=== PATIENT | female | born 1985 | race Caucasian/White ===

== ENCOUNTER 2016-04-05 12:51 | Inpatient (IN) | payer BC ==
[~2016-04-05] VITALS: Ht 162.6 cm; Wt 61.0 kg
[2016-04-05] MEDS ORDERED: LACTATED RINGER'S 1000ML 1,000 ML IV PRN (13:08)
[2016-04-05 13:35] LABS: MEAN CELL VOLUME 92.5 fL (80-100); MEAN CORPUSCULAR HEMOGLOBIN 32.9 pg (25-34); MEAN CORPUSCULAR HGB CONC 35.6 g/dl (32-36); MEAN PLATELET VOLUME 10.9 fL (7.4-10.4); PLATELET COUNT 180 K/uL (130-400); RED BLOOD COUNT 4.65 M/uL (4.2-5.4); WHITE BLOOD COUNT 14.02 K/uL (4.8-10.8)
[2016-04-05] MEDS: LACTATED RINGER'S 1000ML 1,000 ML IV SCH (13:35)
[2016-04-05] MEDS ORDERED: EpHEDrine SULFATE INJ 50 MG/ML AMP ONE (15:06)
[2016-04-05] MEDS ORDERED: FENTANYL 2MCG/ML ROPIV 1.25MG/ML 100ML BAG EPI ONE (15:06)
[2016-04-05] MEDS ORDERED: FENTANYL CITRATE INJ 50 MCG/1 ML 2 ML VIAL ONE (15:06)
[2016-04-05] MEDS ORDERED: BUPIVACAINE 0.25% 30 ML VIAL ONE (15:06)
[2016-04-05] MEDS ORDERED: NALOXONE HCL INJ 1 MG in SODIUM CHLORIDE 0.9% 1000ML 1,000 ML IV PRN (15:43)
[2016-04-05] MEDS ORDERED: LACTATED RINGER'S 1000ML 500 ML IV PRN (15:43)
[2016-04-05] MEDS ORDERED: NALBUPHINE HCL INJ 10 MG/ML AMP IV PRN (15:45)
[2016-04-05] MEDS ORDERED: DiphenhydrAMINE HCL 50 MG/ML VIAL IV PRN (15:45)
[2016-04-05] MEDS ORDERED: ONDANSETRON INJ 2 MG/ML 2 ML VIAL IV PRN (15:45)
[2016-04-05] MEDS ORDERED: NALOXONE HCL INJ 0.4 MG/1 ML VIAL/CARP IV PRN (15:45)
[2016-04-05] MEDS ORDERED: EpHEDrine SULFATE INJ 50 MG/ML AMP IV PRN (15:45)
[2016-04-05] MEDS ORDERED: FENTANYL 2MCG/ML ROPIV 1.25MG/ML 100ML BAG EPI PRN (15:45)
[2016-04-05 16:20] VITALS: Ht 162.6 cm; Wt 61.0 kg
[2016-04-05] MEDS ORDERED: PRENTAB26 PO (16:31)
[2016-04-05] MEDS ORDERED: OXYTOCIN 30 UNITS/500ML NSS IV ONE (23:39)
[2016-04-06] VITALS (7 sets, daily range): BP systolic 107–125; BP diastolic 55–80; PULSE 69–86; TEMP 36.5–36.9; O2SAT 96–98
[2016-04-06] MEDS ORDERED: LANOLIN OINT EXT PRN ×2 (02:00)
[2016-04-06] MEDS ORDERED: SUPERCREAM 0.870 % 15GM JAR EXT PRN (02:00)
[2016-04-06] MEDS ORDERED: BENZOCAINE 20% AER SPR 82.5 GM CAN EXT PRN (02:00)
[2016-04-06] MEDS ORDERED: ACETAMINOPHEN/CODEINE 300/30MG TAB PO PRN ×2 (02:00)
[2016-04-06] MEDS ORDERED: HYDROCORTISONE ACETATE 25 MG SUPP PR PRN (02:00)
[2016-04-06] MEDS ORDERED: OXYTOCIN 30 UNITS/500ML NSS IV PRN (02:00)
[2016-04-06] MEDS ORDERED: IBUPROFEN 600 MG TAB ONE (02:05)
--- NOTE | 2016-04-06 02:11 | DELIVERY SUMMARY ---
DATE OF OPERATION: 04/05/2016 DELIVERING SURGEON: Dr. Skinner. PRE-DELIVERY DIAGNOSES: 1. A 30-year-old G2, P 0-0-1-0, at 39 weeks 2 days. 2. Spontaneous labor. 3. Rh-negative status. POST-DELIVERY DIAGNOSES: Same. CONDITION: Stable and good. FINDINGS: Viable male with Apgars 9 and 10, weight pending. PROCEDURE: Spontaneous vaginal delivery with repair of first-degree perineal laceration. ESTIMATED BLOOD LOSS: 300 mL DESCRIPTION OF PROCEDURE: The patient progressed to complete with epidural anesthesia. She then spontaneously vaginally delivered a viable male over an intact perineum. The head delivered in the left occiput anterior position. This was followed by anterior, then posterior shoulder, then body. No nuchal cord was noted. Baby was delivered and placed on mother's abdomen. The cord was doubly clamped and cut. A segment was retained for cord gases. Cord blood was obtained. The placenta then delivered spontaneously intact with a 3-vessel cord. Pitocin was given. The uterus and vagina were swept of all clots and debris. The uterus became firm. Cervix, vagina and perineum were inspected. A first-degree perineal laceration was noted and this was repaired in standard fashion with 3-0 Vicryl. Mother and baby tolerated delivery well. Excellent hemostasis was achieved. At the conclusion of delivery, sponge, instrument and needle counts were correct x2. I attest to the content of the Intraoperative Record and any orders documented therein. Any exceptio ns are noted below.
--- NOTE | 2016-04-06 07:56 | Progress Note ---
Subjective Apr 06, 2016. Subjective conversation w/ patient, physical exam Ambulation: ambulating normally Voiding: no voiding problems Passing Gas: Yes Diet Tolerance: Regular Diet Lochia: Small Feeding Type: Breast Feeding Pain: No pain reported this morning Review of Systems Constitutional: No chills, No fever Respiratory: No cough, No shortness of breath Cardiac: No chest pain Breast: No breast pain Abdomen: No nausea, No pain, No vomiting Female : No dysuria Objective Vital Signs Date Time Temp Pulse Resp B/P Pulse Ox O2 Delivery O2 Flow Rate FiO2 04/06/16 03:49 36.9 82 18 111/55 Room Air 04/06/16 02:24 36.7 82 18 120/72 Room Air 04/06/16 02:24 Room Air Physical Exam General Appearance: WELL-APPEARING, WD/WN, NO APPARENT DISTRESS Respiratory/Chest: lungs clear, normal breath sounds Cardiovascular: regular rate, rhythm, no gallop, no murmur Fundus: Firm Extremities: no calf tenderness Laboratory Results Last 24 Hours Test 04/05/16 13:25 White Blood Count 14.02 K/uL Red Blood Count 4.65 M/uL Hemoglobin 15.3 g/dL Hematocrit 43.0 % Mean Corpuscular Volume 92.5 fL Mean Corpuscular Hemoglobin 32.9 pg Mean Corpuscular Hemoglobin Concent 35.6 g/dl RDW Standard Deviation 43.6 fL RDW Coefficient of Variation 12.9 % Platelet Count 180 K/uL Mean Platelet Volume 10.9 fL Medications Current Inpatient Medications Medications (Trade) Dose Ordered Sig/Marta Route Start Time Stop Time Status Last Admin Dose Admin Lactated Ringer's 1,000 ml @ 125 mls/hr Q8H IV 04/05/16 13:08 04/07/16 13:07 04/05/16 13:35 125 MLS/HR Lactated Ringer's (Lr 1000ml) 1,000 ml @ 999 mls/hr Q1H1M PRN IV 04/05/16 13:08 05/05/16 13:07 Oxytocin (Pitocin IV) 30 units UD PRN IV 04/06/16 02:00 05/06/16 01:59 Benzocaine (Dermoplast Aero Spr) 1 appln PRN PRN EXT 04/06/16 02:00 05/06/16 01:59 Cocaine HCl (Supercream 0.870% Cr) BID PRN EXT 04/06/16 02:00 04/20/16 01:59 Hydrocortisone Acetate (Anusol Hc Supp) 25 mg BID PRN [place] 04/06/16 02:00 05/06/16 01:59 Lanolin (Lanolin Oint) PRN PRN EXT 04/06/16 02:00 05/06/16 01:59 Ibuprofen (Motrin Tab) 600 mg Q4H PRN PO 04/06/16 02:00 05/06/16 01:59 Acetaminophen/ Codeine Phosphate (Tylenol w/ Codeine #3 Tab) 1 tab Q4H PRN PO 04/06/16 02:00 05/06/16 01:59 Acetaminophen/ Codeine Phosphate (Tylenol w/ Codeine #3 Tab) 2 tab Q4H PRN PO 04/06/16 02:00 05/06/16 01:59 Bisacodyl (Dulcolax Tab) 5 mg 20 PO 04/07/16 20:00 04/07/16 20:01 Bisacodyl (Dulcolax Supp) 10 mg DAILY PRN [place] 04/08/16 07:00 Docusate Sodium (coLACE CAP) 100 mg BID PO 04/06/16 08:00 05/06/16 07:59 Assessment and Plan Post- Day#: 1 Continue Routine Care: - Vital Signs reviewed and WNL (temp max 36.9) - Blood Type: O-, GBS- , Rubella Immune - Patient doing well clinically - Encourage Ambulation today - Pain well controlled with Motrin - Tolerating PO Diet Well Resident Physician Supervision Note: I was present with Dr. Baltazar during the history and exam. I discussed the case with the resident and agree with the findings and plan as documented in the note. Any exceptions or clarifications are listed here: PPD#1 feeling well. Routine care. Needs rhogam workup. Documented By: Angelina Skinner
[2016-04-06] MEDS: DOCUSATE SODIUM 100 MG CAP PO SCH ×2 (08:52→21:00)
[2016-04-06] MEDS: IBUPROFEN 600 MG TAB PO PRN ×3 (08:53→16:35)
[2016-04-06 09:10] LABS: HEMATOCRIT 35.6 % (37-47)
--- NOTE | 2016-04-06 11:29 | Anesthesia Procedure Note ---
Anesthesia Epidural Removal Nt Date & Time Apr 06, 2016 at 11:28 Vital Signs Pain Intensity: 2.0 Vital Signs Past 12 Hours Date Time Temp Pulse Resp B/P Pulse Ox O2 Delivery O2 Flow Rate FiO2 04/06/16 08:20 Room Air 04/06/16 08:00 36.7 81 18 120/80 Room Air 04/06/16 03:49 36.9 82 18 111/55 Room Air 04/06/16 02:24 36.7 82 18 120/72 Room Air 04/06/16 02:24 Room Air Notes Mental Status: alert / awake / arousable, participated in evaluation Nausea / Vomiting: adequately controlled Pain: adequately controlled Airway Patency, RR, SpO2: stable & adequate BP & HR: stable & adequate Hydration State: stable & adequate Neuraxial Anesthesia: was administered Anesthetic Complications: no major complications apparent, pt satisfied with anesthetic care Epidural: removed without complications, with tip intact
[2016-04-06] MEDS: LACTATED RINGER'S 1000ML 1,000 ML IV SCH (13:08)
[2016-04-06] MEDS ORDERED: BISACODYL 10 MG SUPP PR PRN (23:15)
[2016-04-07] MEDS: IBUPROFEN 600 MG TAB PO PRN ×2 (04:33→10:42)
--- NOTE | 2016-04-07 06:42 | Progress Note ---
Subjective Apr 07, 2016. Subjective conversation w/ patient, physical exam Ambulation: ambulating normally Voiding: no voiding problems Passing Gas: Yes Diet Tolerance: Regular Diet Lochia: Small Feeding Type: Bottle Feeding Pain: No pain reported this morning Review of Systems Constitutional: No chills, No fever Respiratory: No cough, No shortness of breath Cardiac: No chest pain Breast: No breast pain Abdomen: No nausea, No pain, No vomiting Female : No dysuria Objective Vital Signs Date Time Temp Pulse Resp B/P Pulse Ox O2 Delivery O2 Flow Rate FiO2 04/06/16 23:00 96 Room Air 04/06/16 23:00 36.6 85 18 107/69 96 Room Air 04/06/16 20:00 36.9 86 18 116/76 97 Room Air 04/06/16 16:30 Room Air 04/06/16 15:54 36.6 83 16 121/80 Room Air 04/06/16 11:30 36.5 69 16 125/79 98 Room Air 04/06/16 08:20 Room Air 04/06/16 08:00 36.7 81 18 120/80 Room Air Physical Exam General Appearance: WELL-APPEARING, WD/WN, NO APPARENT DISTRESS Respiratory/Chest: lungs clear, normal breath sounds Cardiovascular: regular rate, rhythm, no gallop, no murmur Abdomen: normal bowel sounds, non tender, soft Fundus: Firm, Relation to Umbilicus (At umbilicus) Extremities: no calf tenderness Laboratory Results Last 24 Hours Test 04/06/16 08:35 Hemoglobin 12.3 g/dL Hematocrit 35.6 % Medications Current Inpatient Medications Medications (Trade) Dose Ordered Sig/Marta Route Start Time Stop Time Status Last Admin Dose Admin Lactated Ringer's 1,000 ml @ 125 mls/hr Q8H IV 04/05/16 13:08 04/07/16 13:07 04/05/16 13:35 125 MLS/HR Lactated Ringer's (Lr 1000ml) 1,000 ml @ 999 mls/hr Q1H1M PRN IV 04/05/16 13:08 05/05/16 13:07 Oxytocin (Pitocin IV) 30 units UD PRN IV 04/06/16 02:00 05/06/16 01:59 Benzocaine (Dermoplast Aero Spr) 1 appln PRN PRN EXT 04/06/16 02:00 05/06/16 01:59 04/06/16 08:49 1 APPLN Cocaine HCl (Supercream 0.870% Cr) BID PRN EXT 04/06/16 02:00 04/20/16 01:59 Hydrocortisone Acetate (Anusol Hc Supp) 25 mg BID PRN [place] 04/06/16 02:00 05/06/16 01:59 Lanolin (Lanolin Oint) PRN PRN EXT 04/06/16 02:00 05/06/16 01:59 Ibuprofen (Motrin Tab) 600 mg Q4H PRN PO 04/06/16 02:00 05/06/16 01:59 04/07/16 04:33 600 MG Acetaminophen/ Codeine Phosphate (Tylenol w/ Codeine #3 Tab) 1 tab Q4H PRN PO 04/06/16 02:00 05/06/16 01:59 Acetaminophen/ Codeine Phosphate (Tylenol w/ Codeine #3 Tab) 2 tab Q4H PRN PO 04/06/16 02:00 05/06/16 01:59 Bisacodyl (Dulcolax Tab) 5 mg 20 PO 04/07/16 20:00 04/07/16 20:01 Docusate Sodium (coLACE CAP) 100 mg BID PO 04/06/16 08:00 05/06/16 07:59 04/06/16 21:00 100 MG Assessment and Plan Post- Day#: 2 Continue Routine Care: - Vital Signs reviewed and WNL (temp max 36.9) - Blood Type: O-, GBS- , Rubella Immune - Patient doing well clinically - Encourage Ambulation today - Pain well controlled with Ibuprofen - Tolerating PO Diet Well - Discharge today Resident Physician Supervision Note: I interviewed and examined the patient. Discussed with Dr. Baltazar and agree with findings and plan as documented in the note. Any exceptions or clarifications are listed here: [None] Documented By: Bryson Dietrich
--- NOTE | 2016-04-07 06:43 | Discharge Instructions ---
Discharge Instructions Admission Reason for Admission: R/O Labor Discharge Discharge Diagnosis / Problem: Vaginal Delivery Discharge Goals Goal(s): Routine recovery after delivery Medications Continue Dispensed Medications: supercream, dermaplast, tucks, lansinoh Activity Recommendations Activity Limitations: per Instructions/Follow-up section . Instructions / Follow-Up Instructions / Follow-Up ACTIVITY RECOMMENDATIONS: * Gradual return to full activity over the next 2-3 weeks. * No lifting - nothing heavier than baby over the next 2-3 weeks. * Do not engage in vigorous exercise, sexual activity or sports until cleared by your physician. * Do not drive or operate any motorized equipment until cleared by your physician. * You may shower/bathe daily. MEDICATIONS: For discomfort or pain, you may use Acetaminophen (Tylenol), Ibuprofen (Advil), or Naproxen (Aleve) following the package directions. For constipation you may use Colace following the package directions. BREAST CARE: If you are not breast feeding: * Wear a supportive bra 24 hours a day for one to two weeks. * Avoid stimulating your breasts and nipples as much as possible during the first few weeks after delivery. * When taking a shower, have the warm water hit your back, not breasts. * When your breasts feel full, apply ice packs. Usually three to four times a day helps ease the discomfort. * Take a mild pain medication (Tylenol / Motrin) when you are uncomfortable. If breast feeding: * Use breast milk to lubricate nipples. Lansinoh cream may be used for sore nipples. You do not need to remove cream prior to breast feeding. If using a different brand of cream, check the label for directions regarding removal of cream prior to nursing. * Wear a supportive bra. * If having problems with breasts or breast feeding, call a database consultant or your health care provider. EPISIOTOMY CARE: After delivery, if you have an episiotomy (stitches), the following steps will ease discomfort and aid healing. * For the first 24 hours after delivery, place ice packs next to your episiotomy to help reduce swelling. * After the first 24 hour-period, sitz baths, either portable or in the tub, are suggested. A shower with a shower arm sprayed over the episiotomy may be comforting. * Shelly care should be done after each voiding and bowel movement. Squirt warm water from a plastic bottle over the perineum (region of the body between the anus and urinary opening) and pat dry. * Use Dermoplast to ease discomfort. Shake container. Ulysses directly over the episiotomy. Place a Tucks on a clean sanitary pad next to your episiotomy. SPECIAL CARE INSTRUCTIONS: When you are discharged from the hospital, it is important for you to follow the instructions listed below: * During the first week at home, you should be able to care for yourself and your baby. In addition, the usual light household activities are encouraged. * Limit your activities to the way you feel. Do not try to clean the house or move furniture. Be sensible. * If you actively engage in sports and have done so up until the time of your delivery, you may resume these activities as soon as you feel able. This may take up to one month or even longer. Use good judgment. * Continue to take your vitamins for at least six weeks after the of your baby. * Your diet need not be limited unless you were on a special diet before your delivery. Breast-feeding mothers need around 2500 calories per day and at least 64-80 ounces of fluid per day (8 to 10 glasses). * You should eat foods from the four major food groups. Crash diets or fad diets are to be avoided. Eating lean meats, fresh fruits and vegetables, low-fat dairy products, high fiber foods and a regular exercise program, will help you get back to your pre- weight without putting your health at risk. * Constipation is sometimes a problem after delivery. Take a mild laxative as needed. If breast feeding, Milk of Magnesia is acceptable to use. You may use a suppository or Fleets enema if no episiotomy. * A daily shower or tub bath is suggested. Be sure to thoroughly and gently dry the perineum. * A bloody vaginal discharge will usually continue until around four weeks post . A small amount of bleeding may continue for as long as six weeks. Vaginal discharge changes from the bright red bleeding after delivery to pink then brownish and finally yellowish-pink before becoming white and disappearing. * Bleeding may increase with activity. Your first period may come in 4-8 weeks. If you are breast feeding, your period may be delayed even longer. * [place] (sex) can begin whenever both you and your partner feel comfortable and do not have any form of genital infection. It is recommended that you wait at least six weeks for internal and external healing to occur. If you have questions, please talk to your health care practitioner. A condom should be used to prevent infection and . * Foreplay, gentle intercourse and lubrication is very important the first several times to prevent pain. A water-based lubricant such as K-Y jelly or Astroglide may be used. * If you have RH negative blood and your baby is RH positive, you will receive RHOGAM by injection prior to discharge. The nurse will give you a card to keep with you that has the date and place that you received RHOGAM after delivery. * During your care, you had a Rubella screen done to check for the presence of rubella antibodies in your blood. If your test was negative, you will receive a Rubella vaccine prior to discharge. This vaccine may cause a fever, soreness at the injection site and flu-like symptoms. If these symptoms persist, notify your health care practitioner. is not advised for one month after a Rubella vaccine. * Verbalizes understanding of car seat law as reviewed with patient nursing. * Car Seat hand-out given and reviewed with patient by nursing. * Shaken baby information reviewed with patient by nursing. Call you doctor if: * Heavy bleeding (saturating several pads an hour) or passing clots the size of your fist. * A fever >101 degrees F (38.3 degrees C) on two occasions four hours apart and /or chills. * Unusual pain in the pelvic or vaginal areas. * "Baby Blues" lasting longer than two weeks. If you have any questions or concerns, call your health care practitioner at . FOLLOW UP VISIT: * Please call the office at to schedule a 6 week examination. It is important you keep this appointment. It is important for you to make arrangements for either yearly or twice yearly check-ups thereafter. Current Hospital Diet Patient's current hospital diet: Regular OB Diet Discharge Diet Recommended Diet: Regular Diet Pending Studies Studies pending at discharge: no Medical Emergencies . Who to Call and When: Medical Emergencies: If at any time you feel your situation is an emergency, please call 911 immediately. . Non-Emergent Contact Non-Emergency issues call your: Emergency Room Clinician . . "Provider Documentation" section prepared by Jamil Baltazar. VTE Core Measure Inpt VTE Proph given/why not?: Treatment not indicated
[2016-04-07 08:45] VITALS: BP 122/77; PULSE 88; TEMP 36.5; O2SAT 96
[2016-04-07] MEDS: DOCUSATE SODIUM 100 MG CAP PO SCH (09:27)
[2016-04-07 13:20] VITALS: BP_DIAS 77; PULSE 88; TEMP 36.5
[2016-04-07] MEDS ORDERED: BISACODYL 5 MG TABEC PO SCH (20:00)
[2016-04-08] MEDS ORDERED: BISACODYL 10 MG SUPP PR PRN (07:00)
== END 2016-04-07 15:34 | disposition home or self-care (01) | DRG 775 ==
LOC: C.LD 12:51 → C.OPB 12:51 → C.LD 13:09 → C.OPB 13:09 → C.LD 17:18 → C.MS4N 04-06 06:21 → EDSTATUS 04-10 12:53
PROVIDERS: ADMIT Obstetrics & Gynecology; ATTEND Obstetrics & Gynecology
PROC: 0HQ9XZZ Repair Perineum Skin, External Approach (ICD-10-PCS; principal; 2016-04-05)
PROC: 10E0XZZ Delivery of Products of Conception, External Approach (ICD-10-PCS; principal; 2016-04-05)
DX: O70.0 First degree perineal laceration during delivery (principal); Z67.91 Unspecified blood type, Rh negative; Z37.0 Single live birth; Z3A.39 39 weeks gestation of pregnancy

== ENCOUNTER → 2016-07-26 | Outpatient (CLI) | payer BC ==
[~2016-07-26] MED LIST: PRENTAB26 PO
[2016-07-29 02:40] LABS: CHLAMYDIA TRACH RNA*** NOT DETECTED (NOT DETECTED); GC (NEIS GONORRHOEAE)RNA** NOT DETECTED (NOT DETECTED)
== END | disposition home or self-care (01) ==
LOC: C.LABSPEC 18:18
PROVIDERS: ATTEND Obstetrics & Gynecology
DX: Z20.2 Contact with and (suspected) exposure to infections with a predominantly sexual mode of transmission (principal)

== ENCOUNTER → 2016-11-14 | Outpatient (CLI) | payer BC | END | disposition home or self-care (01) | LOC: C.LAB1850 15:28 | PROVIDERS: ATTEND Obstetrics & Gynecology | DX: Z20.2 Contact with and (suspected) exposure to infections with a predominantly sexual mode of transmission (principal) ==

== ENCOUNTER → 2017-06-07 | Outpatient (CLI) | payer OTHER | END | disposition home or self-care (01) | LOC: C.PAPS 11:08 | PROVIDERS: ATTEND Obstetrics & Gynecology | DX: Z01.419 Encounter for gynecological examination (general) (routine) without abnormal findings (principal) ==

== ENCOUNTER → 2017-06-13 | Outpatient (CLI) | payer OTHER | END | disposition home or self-care (01) | LOC: C.LABSPEC 15:38 | PROVIDERS: ATTEND Obstetrics & Gynecology | DX: Z30.430 Encounter for insertion of intrauterine contraceptive device (principal) ==

== ENCOUNTER → 2017-06-13 | Outpatient (CLI) | payer OTHER | END | disposition home or self-care (01) | LOC: C.PAPS 16:24 | PROVIDERS: ATTEND Obstetrics & Gynecology | DX: Z12.4 Encounter for screening for malignant neoplasm of cervix (principal) ==